=== PATIENT | male | born 1955 | race Two or more races ===

== ENCOUNTER → 2025-03-10 | Outpatient (CLI) | payer MEDICARE, MEDICAID, SELFPAY ==
--- NOTE | 2025-03-10 08:30 | XR_ITS ---
Examination: MRI lumbar spine without contrast Date and time of exam: March 10, 2025 0742 hours INDICATIONS: Low back pain radiating down the left leg, weakness in the left leg with paresthesias 9 years, worse the last 2 years Technique: Multiple MRI axial and sagittal sections lumbar spine. Sagittal T2-weighted images, TR 3500, TE 118 T1 weighted transverse sections, TR 688 T8.5, T2-weighted sagittal sections T1 weighted sagittal sections TR 621, TE 30 T2 axial sections, TR 4, 190, TE 84. Findings: Adequate alignment lumbar vertebral bodies on the lateral view Moderate disc narrowing L5-S1 No spondylolisthesis Hemangiomatous change L4 Diffuse lumbar disc desiccation Mild old wedging T12 L5-S1 4 mm central lumbar disc bulge extending to the left foraminal region with mild left L5 ganglionic impression L4-L5 5 mm foraminal disc bulges with no ganglionic impression L3-L4 3 mm foraminal disc bulges with no ganglionic compression L2-L3 no disc protrusion L1-L2 no disc protrusion IMPRESSION: L5-S1 4 mm central lumbar disc bulging extending into the left foraminal region with mild left L5 ganglionic compression
== END | disposition home or self-care (01) ==
LOC: SMRI 07:04
PROVIDERS: PCP Internal Medicine; Referring Provider Internal Medicine; Visit Provider Internal Medicine
DX: M51.370 Other intervertebral disc degeneration, lumbosacral region with discogenic back pain only (principal); G95.20 Unspecified cord compression
CPT/HCPCS: 72148